=== PATIENT | female | born 1975 ===

== ENCOUNTER 2017-12-14 13:10 | Emergency (ER) | payer BC, OTHER ==
[2017-12-14 13:40] VITALS: BMI 42.6
[2017-12-14] MEDS ORDERED: Lactated Ringer's 1,000 ML IV SCH (13:45)
[2017-12-14 13:57] LABS: HEMOGLOBIN 10.9 g/dL (12.0-16.0); MEAN CELL VOLUME 92.6 fl (81.0-99.0); MEAN CORPUSCULAR HEMOGLOBIN 30.6 pg (27.0-31.0); RBC 3.57 Mil/uL (3.80-5.20); RED CELL DISTRIBUTION WIDTH 14.3 % (11.5-14.5); WHITE BLOOD COUNT 9.5 K/uL (4.8-10.8)
[2017-12-14 14:08] LABS: ALBUMIN 3.3 g/dL (3.5-5.0); ALT/SGPT 33 U/L (9-52); AST/SGOT 20 U/L (14-36); BLOOD UREA NITROGEN 7 mg/dl (7-17); CALCIUM 8.8 mg/dL (8.4-10.2); GFR AFRICAN-AMERICAN > 60; GFR NON-AFRICAN AMERICAN > 60
--- NOTE | 2017-12-14 14:57 | OBHP ---
Datetime: 12/14/2017 14:49 IP Adm Impression: , intrauterine ; No Active Labor IP Chief Complaint Other: vomiting episodes and had diarrehea this am IP Adm Impression Other: hyper emesis/ gastroenteritis IP Admit Plan: Observation/Evaluation Admit Comment, IP Provider: start IV hydration Iv Zofram CBC and Chemistry done, if ok then will D/ C home on po zofram n imodium. Instructions given Extremities - PN: Normal Abdomen - PN: Abnormal Breast - PN: Normal Lungs - PN: Normal Heart - PN: Normal Thyroid - PN: Normal Neurologic - PN: Normal HEENT - PN: Normal General - PN: Normal Membranes, Provider: Intact Contraction Comments Provider: none Comments, ACOG Physical Exam: Abd gravid, NT, fundus at 30 cm above SP and NT, SVE no Bleeeding or R OM Gestation - Est Wks by US: 28+ Pool Provider: Negative EGA AdmitDate IP: 28.4 IP Chief Complaint: Maternal discomfort NICHD Decel Fetus A IP Provider: None Dilatation, Provider: closed Effacement, Provider: none Genitourinary Exam: Normal DTRs - PN: Normal
[2017-12-14 19:18] VITALS: BP 104/63; PULSE 81; RESP 20; TEMP 98.8; O2SAT 98
== END 2017-12-14 15:15 | disposition home or self-care (01) ==
LOC: H.EROB2 13:10
DX: O26.93 Pregnancy related conditions, unspecified, third trimester (principal); R19.7 Diarrhea, unspecified; O21.0 Mild hyperemesis gravidarum; Z3A.28 28 weeks gestation of pregnancy
CPT/HCPCS: 80053; 85027; 96374; 99283; J2405; J7120

== ENCOUNTER 2018-01-30 16:07 | Emergency (ER) | payer OTHER ==
[2018-01-30 17:23] VITALS: BMI 42.4
--- NOTE | 2018-01-30 18:39 | US ---
PROCEDURE: OB Pelvic Ultrasound HISTORY: JAMES evaluation. LMP: COMPARISON: None available. FINDINGS: The total amniotic fluid index is 7.0 cm. Single live intrauterine fetus in cephalic presentation. Placenta is fundal and anterior. CERVIX: Measures 4.7 cm. Long and closed. No cervical abnormality seen. FREE FLUID: None. OTHER FINDINGS: None. IMPRESSION: Amniotic fluid index is normal and measures 7.0 cm. The vertical pocket in the left upper quadrant measures 2.79 cm.
--- NOTE | 2018-01-30 21:13 | OBHP ---
Datetime: 01/30/2018 17:45 IP Adm Impression: , intrauterine IP Admit Plan: Observation/Evaluation Admit Comment, IP Provider: 42 y/o F with LEO [birth year] presents with suspected LOF that occure d at 15:30pm. Pt reports some clear fluid came from vagina that did not appear like urine. Pt denies CTX's and vaginal bleeding. Positive FM. Pt reports finishing a course of antibiotics for UTI treatme nt. Pt denies headache, dizziness, CP, SOB, abdominal pain, urinary complaints or rash. Allergies: NKDA PN Care: Dr Lopez at [facility]. PN Labs: NOT available. Pt did NOT bring any records from clinic. OBGYN Hx: . 3x at [facility]. 1x [facility]. PMHx: denied PSHx: denied FHx: NC SHx: No tobacco, alcohol or rec drugs. A/P 42 y/o F with IUP at 35.2 weeks GA, with supected ROM. -Observe. -FHT monitoring. -US for JAMES evaluation. -Will re-evaluate after US results. Case discueed with Dr Long OB supervisor contact and service clerks Rosa PGY-1. The patient was seen with resident I agree with the notes Speculum exam performed no pooling nitrazine negative bedside sonogram JAMES 7.0. Patient referred f or official scan the patient scan revealed an JAMES of 7.2. Plan of care discussed with PMDD patient to follow-up for official sonogram in 24 hours. Patient given labor precautions Pelvic Type - PN: Adequate Extremities - PN: Normal Abdomen - PN: Normal Back - PN: Normal Breast - PN: Normal Lungs - PN: Normal Heart - PN: Normal Thyroid - PN: Normal Neurologic - PN: Normal HEENT - PN: Normal General - PN: Normal FHR - Baseline A Provider: 150 Contraction Comments Provider: None Comments, ACOG Physical Exam: Pelvic exam: on speculum negative pooling and negative nitrazine. Bedside US: noticeable pocket of anmiotic fluid. Pool Provider: Negative Nitrazine Provider: Negative EGA AdmitDate IP: 35.2 Vital Signs Provider: Reviewed IP Chief Complaint: Suspected ruptured membranes NICHD Variability Prov Fetus A: Moderate 6-25bpm NICHD Accel Fetus A IP Provider: 15X15 FHR Category Provider Fetus A: Category I Dilatation, Provider: closed
[2018-01-31 01:01] VITALS: BP 112/64; PULSE 74; RESP 18; TEMP 98.1; O2SAT 98
== END 2018-01-30 20:20 | disposition home or self-care (01) ==
LOC: H.EROB2 16:07
DX: O47.03 False labor before 37 completed weeks of gestation, third trimester (principal); Z3A.35 35 weeks gestation of pregnancy; O34.63 Maternal care for abnormality of vagina, third trimester; N89.8 Other specified noninflammatory disorders of vagina

== ENCOUNTER 2018-02-01 13:14 | Inpatient (IN) | payer OTHER ==
[2018-02-01 13:50] VITALS: BMI 42.2
[2018-02-01] MEDS ORDERED: AMPicillin 2 GM in Sodium Chloride 0.9% 100 ML IVPB STA (13:59)
[2018-02-01] MEDS ORDERED: Betamethasone Soluspan 30 mg/5mL Inj Susp IM ONE (14:01)
[2018-02-01 14:53] LABS: BASO % 0.3 % (0.0-2.0); EOS # 0.1 K/uL (0.0-0.7); EOS % 0.7 % (0.0-4.0); HEMOGLOBIN 10.6 g/dL (12.0-16.0); LYMPH # 1.2 K/uL (1.0-4.3); LYMPH % 14.4 % (20.0-40.0); MEAN CORPUSCULAR HGB CONC 33.7 g/dL (33.0-37.0); MEAN PLATELET VOLUME 9.2 fl (7.2-11.7); MONO # 0.5 K/uL (0.0-0.8); MONO % 5.8 % (0.0-10.0); NEUT # 6.4 K/uL (1.8-7.0); NEUT % 78.8 % (50.0-75.0); NRBC % 0.1 % (0.0-0.0); RBC 3.43 Mil/uL (3.80-5.20); RED CELL DISTRIBUTION WIDTH 15.8 % (11.5-14.5); WHITE BLOOD COUNT 8.2 K/uL (4.8-10.8)
--- NOTE | 2018-02-01 15:04 | OBHP ---
Datetime: 02/01/2018 14:03 IP Adm Impression: , intrauterine ; No Active Labor; Ruptured Membranes IP Admit Plan: Admit to unit; Initiate labor protocol Admit Comment, IP Provider: IUP at 35w sent from Dr Frankel for gross pooling; no CTX; no V b; +FM PNC: CP Dr Lopez / chart rev'd PMH: [id number] PSH: denies NKA POBGYNH: x 3; spont ab x 1 PSoH: denies smoking ETOH drugs A; IUP at 35w PROM AMA PLAN: As per PMD: admit to L_D; Steroids; Ampicillin; labs Condition and managemnt discussed with pt. Extremities - PN: Normal Abdomen - PN: Normal Back - PN: Normal Lungs - PN: Normal Heart - PN: Normal Thyroid - PN: Normal Neurologic - PN: Normal General - PN: Normal Presentation-Admit: Vertex IP Hx Assessment: The History has been Reviewed and is Current EGA AdmitDate IP: 35.4 IP Chief Complaint: Suspected ruptured membranes FHR Category Provider Fetus A: Category I NICHD Decel Fetus A IP Provider: None Genitourinary Exam: Normal
--- NOTE | 2018-02-01 15:09 | OBADHP ---
Datetime: 02/01/2018 14:03 Admit Comment, IP Provider: IUP at 35w sent from Dr Frankel for gross pooling; no CTX; no V b; +FM PNC: CP Dr Lopez / chart rev'd PMH: [id number] PSH: denies NKA POBGYNH: x 3; spont ab x 1 PSoH: denies smoking ETOH drugs A; IUP at 35w PROM AMA PLAN: As per PMD: admit to L_D; Steroids; Ampicillin; labs Condition and managemnt discussed with pt. Extremities - PN: Normal Abdomen - PN: Normal Back - PN: Normal Lungs - PN: Normal Heart - PN: Normal Thyroid - PN: Normal Neurologic - PN: Normal General - PN: Normal Presentation-Admit: Vertex IP Hx Assessment: The History has been Reviewed and is Current IP Chief Complaint: Suspected ruptured membranes FHR Category Provider Fetus A: Category I NICHD Decel Fetus A IP Provider: None Genitourinary Exam: Normal EGA AdmitDate IP: 35.4 IP Adm Impression: , intrauterine ; No Active Labor; Ruptured Membranes IP Admit Plan: Admit to unit; Initiate labor protocol Datetime: 01/30/2018 17:45 Pelvic Type - PN: Adequate Breast - PN: Normal HEENT - PN: Normal FHR - Baseline A Provider: 150 Contraction Comments Provider: None Comments, ACOG Physical Exam: Pelvic exam: on speculum negative pooling and negative nitrazine. Bedside US: noticeable pocket of anmiotic fluid. Pool Provider: Negative Nitrazine Provider: Negative Vital Signs Provider: Reviewed NICHD Variability Prov Fetus A: Moderate 6-25bpm NICHD Accel Fetus A IP Provider: 15X15 Dilatation, Provider: closed Datetime: 12/14/2017 14:49 IP Chief Complaint Other: vomiting episodes and had diarrehea this am IP Adm Impression Other: hyper emesis/ gastroenteritis Membranes, Provider: Intact Gestation - Est Wks by US: 28+ Effacement, Provider: none DTRs - PN: Normal
[2018-02-01] MEDS ORDERED: AMPicillin 4 GM ONE (18:12)
[2018-02-01] MEDS: AMPicillin 1 GM in Sodium Chloride 0.9% 100 ML IVPB SCH ×2 (18:15→22:28)
--- NOTE | 2018-02-01 22:38 | OBPN ---
Datetime: 02/01/2018 22:31 IP Progress Impression Other: AMA/Gest DM on diet IP Progress Impression: Reassuring heart rate; Rupture of membranes; labor; Premature rupture of membranes IP Progress Plan: Augmentation Pool Provider: Positive Nitrazine Provider: Positive Membranes, Provider: Ruptured Amniotic Fluid Color, Provider: Clear Contraction Comments Provider: irreg FHR - Baseline A Provider: 140/150 Gestation - Est Wks by US: 35 w 4d Presentation-Admit: Cephalic IP Progress Note Comment: Was given one dose of steroids and 3rd dose of antibiotics going in, UC ir regular Discussed with pt will start augumentation of labor, aware of prematurity status NICHD Accel Fetus A IP Provider: 10X10 NICHD Variability Prov Fetus A: Moderate 6-25bpm Dilatation, Provider: 2cm Effacement, Provider: 50% NICHD Decel Fetus A IP Provider: None Datetime: 02/01/2018 14:03 FHR Category Provider Fetus A: Category I Datetime: 01/30/2018 17:45 Vital Signs Provider: Reviewed
[2018-02-01] MEDS ORDERED: Lactated Ringer's 1,000 ML IV SCH (23:00)
[2018-02-02] MEDS ORDERED: Betamethasone Soluspan 30 mg/5mL Inj Susp IM ONE (02:00)
[2018-02-02] MEDS: AMPicillin 1 GM in Sodium Chloride 0.9% 100 ML IVPB SCH ×2 (02:35→06:15)
[2018-02-02] MEDS ORDERED: Lactated Ringer's 1,000 ML IV SCH (02:45)
[2018-02-02] MEDS ORDERED: Fentanyl/Bupivacaine HCl 250 ML EPI ONE (03:33)
[2018-02-02] MEDS ORDERED: Bupivacaine HCl 0.25% PF (10 ml) Inj ONE (03:36)
--- NOTE | 2018-02-02 08:42 | OBDS ---
DELIVERY PERSONNEL Anesthesiologist: Abbie Powers MD MATERNAL INFORMATION Delivery Anesthesia: Epidural Estimated Blood Loss (ml): 200 Maternal Complications: Premature Rupture of Membranes Other Maternal Complications: gest DM/AMA Provider Comments: Delivered a living baby boy appears AGA, cried spontaneously, Peds in attendence AF clear Placenta complete and intact Small superficial perineal laceration repaired as above Uterus contracted well, no complications Tolerated procedure well LABOR SUMMARY EDC: 03/04/2018 00:00 No. Babies in Womb: 1 Attempted: No Labor Anesthesia: Epidural LABOR INFORMATION Reason for Induction: Premature Rupture of Membranes; Maternal Diabetes; Other Reason for Induction Other: AMA Onset of Labor: 02/01/2018 10:55 Complete Dilatation: 02/02/2018 07:10 Oxytocin: Augmentation Group B Beta Strep: Positive (Annotations: 01/28/2018) Antibiotics # of Doses: 6 Antibiotics Time of Last Dose: 0615 AM Steroids Given: Partial Course Reason Steroids Not Administered: Indication MEMBRANES Membranes Rupture Method: Spontaneous Rupture of Membranes: 02/01/2018 10:55 Amniotic Fluid Color: Clear Amniotic Fluid Amount: Small Amniotic Fluid Odor: Normal STAGES OF LABOR Stage 1 hrs: 20 Stage 1 min: 15 VAGINAL DELIVERY Episiotomy: None Laceration Extension: First Degree Laceration Type: Perineal Laceration Repair: Yes Laceration Repair Note: Perineal 1st dg laceration repaired with 2 interrupted 2-0 chromic wihout an y complications Sponge Count Correct: Yes Sharps Count Correct: Yes Count Comment: count correct and verified by RN CSECTION DELIVERY Primary Indication: N/A Secondary Indication: N/A CSection Incision: N/A Uterine Closure: N/A INFORMATION BABY A Gestational Age at Delivery: 35.0 Gestational Status: IDENTIFICATION/MEDS BABY A ID Band Number: [id number]
[2018-02-02] MEDS ORDERED: Benzocaine/Menthol SPRAY TOP PRN ×2 (08:44→12:19)
[2018-02-02] MEDS ORDERED: Oxycodone/Acetaminophen 5/325 mg Tab PO PRN ×2 (08:44→12:19)
[2018-02-02] MEDS ORDERED: Hydrocortisone 2.5% (Rectal) CREAM PR SCH (17:00)
[2018-02-02] MEDS: Hydrocortisone 2.5% (Rectal) CREAM PR SCH (17:24)
[2018-02-03 08:24] LABS: HEMOGLOBIN 9.8 g/dL (12.0-16.0); MEAN CELL VOLUME 92.7 fl (81.0-99.0); MEAN CORPUSCULAR HEMOGLOBIN 30.6 pg (27.0-31.0); RBC 3.21 Mil/uL (3.80-5.20); RED CELL DISTRIBUTION WIDTH 15.9 % (11.5-14.5); WHITE BLOOD COUNT 10.5 K/uL (4.8-10.8)
--- NOTE | 2018-02-03 08:25 | OBPPN ---
Datetime: 02/03/2018 08:20 PP Pain Prov: Within normal limits PP Pain Prov comment: no SOB, chest or leg pains PP Nausea Prov: Denies PP Flatus Prov: Yes PP BM Prov: No PP Nausea Prov comment: No C/F PP Breasts Prov: Normal PP Lungs Prov: Normal PP Abdomen/Uterus Prov: Abnormal PP Lochia Prov: Normal PP Vulva/Perineum Prov: Abnormal PP CVA Tenderness Prov: Normal PP Extremities Prov: Normal PP Comments Phys Exam Prov: breast not engorged NT; Abd soft not distended, fundus firm below the um b. NT; Perineum repaired Ext no calf tenderness PP Impression Prov: Normal progression PP Plan Prov: Continue present management PP Progress Note Prov: OOB and ambulation increased po fluids Continue sugar monitoring and pending CBC this am IP PP Procedures: None
[2018-02-03] MEDS: Hydrocortisone 2.5% (Rectal) CREAM PR SCH ×2 (08:26→17:00)
--- NOTE | 2018-02-04 07:35 | OBPPN ---
Datetime: 02/04/2018 07:32 PP Pain Prov: Within normal limits PP Pain Prov comment: No SOB, chest or leg pains PP Nausea Prov: Denies PP Flatus Prov: Yes PP Nausea Prov comment: voiding well PP Flatus Prov comment: denies C/F PP Breasts Prov: Normal PP Lungs Prov: Normal PP Abdomen/Uterus Prov: Abnormal PP Lochia Prov: Normal PP Vulva/Perineum Prov: Abnormal PP CVA Tenderness Prov: Normal PP Extremities Prov: Normal PP C/S Incision Prov: Not Applicable PP Progress Prov: Normal PP Comments Phys Exam Prov: breast not engorged, NT; Abd soft ND, fundus firm below the umb NT, Per ineum repaired, Ext no calf tenderness PP Impression Prov: Normal progression PP Plan Prov: Discharge PP Progress Note Prov: blood sugars reviewed and wnl, will D/C home and continue sugar monitoring an d will call with results 2 wks Continue PNC vit and iron. IP PP Procedures: None Vital Signs Provider PP: Reviewed
--- NOTE | 2018-02-04 07:38 | OBDCSUM ---
Datetime: 02/04/2018 07:35 Discharged to, Provider: Home Follow up at, Provider: Dr Lopez Disch Instr Activity: Bedrest; May be up to bathroom; May be up for meals; May Shower Disch Instr Diet: Regular Discharge Instructions, Provider: Routine instructions given Discharge Diagnosis, Provider: Delivery; PROM - Indicate X Hours Discharge Time: 02/04/2018 07:35 Follow up in weeks, Provider: 2 wks Disch Referrals: None Contraception discussed, Prov: Yes Disch Activity Restrictions: No exercising; No lifting; No driving; Minimize walking; Minimize stair -climbing; No sexual activity; Nothing in vagina - [place], tampons, douche Discharge Comment, Provider: Continue sugar monitoring and PNC vit and iron Discharge Diagnosis Prov Other: Gest DM/AMA Contraception after Delivery: Undecided
[2018-02-04] MEDS: Hydrocortisone 2.5% (Rectal) CREAM PR SCH (08:52)
[2018-02-04 23:44] VITALS: BP 135/77; PULSE 77; RESP 20; TEMP 97; O2SAT 100
== END 2018-02-04 17:30 | disposition home or self-care (01) | DRG 372 ==
LOC: H.EROB2 13:14 → H.L&D 13:59 → H.OB/GYN 02-02 12:16
PROVIDERS: ADMIT Specialist; ATTEND Specialist
PROC: 4A1HXCZ Monitoring of Products of Conception, Cardiac Rate, External Approach (ICD-10-PCS; 2018-02-01)
PROC: 10E0XZZ Delivery of Products of Conception, External Approach (ICD-10-PCS; principal; 2018-02-02)
PROC: 0HQ9XZZ Repair Perineum Skin, External Approach (ICD-10-PCS; 2018-02-02)
DX: O60.14X0 Preterm labor third trimester with preterm delivery third trimester, not applicable or unspecified (principal); O24.429 Gestational diabetes mellitus in childbirth, unspecified control; O09.523 Supervision of elderly multigravida, third trimester; O42.913 Preterm premature rupture of membranes, unspecified as to length of time between rupture and onset of labor, third trimester; O70.0 First degree perineal laceration during delivery; Z3A.35 35 weeks gestation of pregnancy; Z37.0 Single live birth